=== PATIENT | male | born 1955 | race Caucasian/White ===

== ENCOUNTER 2021-06-22 16:00 | Emergency (ER) | payer OTHER ==
[~2021-06-22] VITALS: Ht 177.8 cm; Wt 79.4 kg
[2021-06-22] MEDS ORDERED: DEPAKOTE ER500 MG PO (16:09)
[2021-06-22] MEDS ORDERED: ATIVAN1 M1 PO (16:10)
[2021-06-22] MEDS ORDERED: ZYPREXA20 MG PO (16:10)
[2021-06-22] MEDS ORDERED: RESTORIL30 M1 PO (16:10)
[2021-06-22] MEDS ORDERED: HALDOL DEC100 MG/1 M IM (16:10)
== END 2021-06-22 21:01 | disposition home or self-care (01) ==
LOC: ER 16:00
DX: S00.81XA Abrasion of other part of head, initial encounter (principal); W19.XXXA Unspecified fall, initial encounter; Y93.89 Activity, other specified; Y92.128 Other place in nursing home as the place of occurrence of the external cause; Y99.9 Unspecified external cause status; Z20.822 Contact with and (suspected) exposure to COVID-19

== ENCOUNTER 2022-02-14 15:19 | Emergency (ER) | payer OTHER ==
[~2022-02-14] VITALS: Ht 172.7 cm; Wt 72.6 kg
[~2022-02-14 15:19] MED LIST: ATIVAN1 M1 PO; DEPAKOTE ER500 MG PO; HALDOL DEC100 MG/1 M IM; RESTORIL30 M1 PO; ZYPREXA20 MG PO
[2022-02-14] MEDS ORDERED: FEOSOL45 MG PO (16:06)
[2022-02-14] MEDS ORDERED: FOLIC ACID0.8 M1 PO (16:06)
== END 2022-02-14 19:19 | disposition home or self-care (01) ==
LOC: ER 15:19
DX: S80.01XA Contusion of right knee, initial encounter (principal); W19.XXXA Unspecified fall, initial encounter; Y93.9 Activity, unspecified; Y92.018 Other place in single-family (private) house as the place of occurrence of the external cause; Y99.9 Unspecified external cause status; F20.9 Schizophrenia, unspecified

== ENCOUNTER 2022-06-13 13:49 | Inpatient (IN) | payer OTHER ==
[~2022-06-13] VITALS: Ht 167.6 cm; Wt 72.6 kg
[~2022-06-13 13:49] MED LIST changes: +FEOSOL45 MG PO; +FOLIC ACID0.8 M1 PO
--- NOTE | 2022-06-13 14:59 | NUR ---
SE RECIBE MASCULINO ALERTA Y ORIENTADO EN COMPANIA DE FAMILIAR QUIEN REFIERE EN HOGAR DE CUIDO LE INDICARON PASAR POR QIANA DE EMERGENCIA DEBIDO A QUE EN PIERNA DERECHA PRESENTA LESIONES QUE COMENZARON RADHA PICADURA. LE DELA CRUZ ESTADO OFRECIENDO CUIDADO DE HERIDA EN AREA Y LAS MISMAS NO PRESENTAN MEJORIA. REFIEREN CONTINUA SUPURANDO. AREA VENDADA AL MOMENTO DE REALIZAR TRIAGE. PIE DERECHO SE OBSERVA EDEMATIZADO. SE MONITOREAN S/V Y SE UBICA.
--- NOTE | 2022-06-13 17:46 | NUR ---
PTE MASCULINO ALERTA Y ORIENTADO EN COMPANIA DE FAMILIAR ES EVALUADO POR . SE ORIENTA SOBRE ORDENES DE [place] REFIERE COMPRENDER. SE ADMINISTRA MEDICAMENTO, BAJO MEDIDAS ASEPTICAS.
== END 2022-06-15 13:40 | disposition home or self-care (01) | DRG 593 ==
LOC: ER 13:49 → MEDJ 21:08
PROVIDERS: ADMIT Internal Medicine; ATTEND Internal Medicine
PROC: B54DZZZ Ultrasonography of Bilateral Lower Extremity Veins (ICD-10-PCS; principal; 2022-06-14)
DX: L97.818 Non-pressure chronic ulcer of other part of right lower leg with other specified severity (principal); E87.1 Hypo-osmolality and hyponatremia; L03.115 Cellulitis of right lower limb; M79.661 Pain in right lower leg; L30.8 Other specified dermatitis; F20.9 Schizophrenia, unspecified

== ENCOUNTER 2022-07-07 20:01 | Emergency (ER) | payer OTHER ==
[~2022-07-07] VITALS: Ht 167.6 cm; Wt 71.2 kg
== END 2022-07-08 03:48 | disposition home or self-care (01) ==
LOC: ER 20:01
DX: K92.1 Melena (principal); R31.9 Hematuria, unspecified; R19.7 Diarrhea, unspecified; F20.89 Other schizophrenia

== ENCOUNTER 2022-11-07 16:00 | Inpatient (IN) | payer OTHER ==
[~2022-11-07] VITALS: Ht 167.6 cm; Wt 114.3 kg
[2022-11-07] MEDS ORDERED: GOCOVRI68.5 MG PO (16:13)
[2022-11-07] MEDS ORDERED: COZAAR25 MG PO (16:13)
== END 2022-11-11 17:47 | disposition home or self-care (01) | DRG 872 ==
LOC: ER 16:00 → SEC-K 22:06 → MEDJ 11-08 17:01
PROVIDERS: Emergency Medicine; ADMIT Internal Medicine; ATTEND Internal Medicine
PROC: B54BZZZ Ultrasonography of Right Lower Extremity Veins (ICD-10-PCS; principal; 2022-11-07)
PROC: B020ZZZ Computerized Tomography (CT Scan) of Brain (ICD-10-PCS; 2022-11-07)
PROC: BW40ZZZ Ultrasonography of Abdomen (ICD-10-PCS; 2022-11-08)
PROC: BT43ZZZ Ultrasonography of Bilateral Kidneys (ICD-10-PCS; 2022-11-08)
PROC: 3E0F7SF Introduction of Other Gas into Respiratory Tract, Via Natural or Artificial Opening (ICD-10-PCS; 2022-11-08)
PROC: 3E0F7GC Introduction of Other Therapeutic Substance into Respiratory Tract, Via Natural or Artificial Opening (ICD-10-PCS; 2022-11-08)
DX: A41.9 Sepsis, unspecified organism (principal); L03.115 Cellulitis of right lower limb; N17.8 Other acute kidney failure; F20.0 Paranoid schizophrenia; L89.892 Pressure ulcer of other site, stage 2; G20 Parkinson's disease; F02.80 Dementia in other diseases classified elsewhere, unspecified severity, without behavioral disturbance, psychotic disturbance, mood disturbance, and anxiety; B95.0 Streptococcus, group A, as the cause of diseases classified elsewhere; B95.61 Methicillin susceptible Staphylococcus aureus infection as the cause of diseases classified elsewhere; I12.9 Hypertensive chronic kidney disease with stage 1 through stage 4 chronic kidney disease, or unspecified chronic kidney disease; N18.9 Chronic kidney disease, unspecified; J34.89 Other specified disorders of nose and nasal sinuses